=== PATIENT | female | born 1945 | race Caucasian/White ===

== ENCOUNTER 2024-01-03 20:17 | Emergency (ER) | payer MEDICARE, OTHER ==
[~2024-01-03] VITALS: Ht 160 cm; Wt 81.6 kg
[2024-01-03 21:58] LABS: BASOPHILS % (AUTO) 0.3 % (0.0-2.0); EOSINOPHILS # (AUTO) 0.1 K/uL (0.0-0.7); EOSINOPHILS % (AUTO) 2.3 % (0.0-6.0); HEMATOCRIT 37 % (33-45); HEMOGLOBIN 12.1 g/dL (11.5-14.8); LYMPHOCYTES # (AUTO) 2.3 K/uL (0.8-4.8); LYMPHOCYTES % (AUTO) 34.9 % (20.0-44.0); MEAN CORPUSCULAR HEMOGLOBIN 32 PG (26.0-33.0); MEAN CORPUSCULAR HGB CONC 33 g/dl (31.0-36.0); MEAN CORPUSCULAR VOLUME 95 fL (82-100); MONOCYTES # (AUTO) 0.6 K/uL (0.1-1.30); MONOCYTES % (AUTO) 8.9 % (2.0-12.0); NEUTROPHILS # (AUTO) 3.5 K/uL (1.8-8.9); NEUTROPHILS % (AUTO) 53.6 % (43.0-81.0); PLATELET COUNT (AUTO) 202 K/uL (150-450); RED BLOOD CELL COUNT(AUTO) 3.85 MIL/uL (4.0-5.2); RED CELL DISTRIBUTION WIDTH 16.4 % (11.5-15.0); WHITE BLOOD COUNT (AUTO) 6.5 K/uL (4.3-11.0)
[2024-01-03 22:08] LABS: APPEARANCE,URINE CLEAR (CLEAR); BILIRUBIN,URINE NEGATIVE (NEGATIVE); BLOOD, URINE NEGATIVE Ery/uL (NEGATIVE); COLOR,URINE YELLOW (YELLOW); KETONES,URINE NEGATIVE (NEGATIVE); LEUKOCYTE ESTERASE ,URINE NEGATIVE (NEGATIVE); NITRITE, URINE NEGATIVE (NEGATIVE); PROTEIN,URINE NEGATIVE (NEGATIVE); UGLUCOSE NEGATIVE (NEGATIVE); UROBILINOGEN,URINE 0.2 EU/dL (0.2)
[2024-01-03 22:12] LABS: ALANINE AMINOTRANSFERASE 18 U/L (12-78); ALBUMIN 2.8 g/dL (3.4-5.0); ALCOHOL, BLOOD < 3 mg/dL (0-10); ALKALINE PHOSPHATASE 77 U/L (46-116); ASPARTATE AMINOTRANSFERASE 18 U/L (15-37); BILIRUBIN,DIRECT 0.1 mg/dL (0.0-0.2); BILIRUBIN,TOTAL 0.2 mg/dL (0.2-1.0); CALCIUM, SERUM 8.6 mg/dL (8.5-10.1); CARBON DIOXIDE 34 mmol/L (21-32); CHLORIDE 101 mmol/L (98-107); CREATININE 0.9 mg/dL (0.6-1.3); GLUCOSE 118 mg/dL (74-106); POTASSIUM 3.6 mmol/L (3.5-5.1); SODIUM SERUM 142 mmol/L (136-145); TOTAL PROTEIN, SERUM 6.9 g/dL (6.4-8.2); UREA NITROGEN, BLOOD 21 mg/dL (7-18)
[2024-01-03 22:14] LABS: AMPHETAMINE, URINE NEGATIVE (NEGATIVE); BARBITURATE, URINE NEGATIVE (NEGATIVE); BENZODIAZEPINE, URINE NEGATIVE (NEGATIVE); CANNABINOID, URINE NEGATIVE (NEGATIVE); COCCAINE, URINE NEGATIVE (NEGATIVE); OPIATE, URINE NEGATIVE (NEGATIVE); PHENCYCLIDINE SCREEN,URINE NEGATIVE (NEGATIVE)
[2024-01-03 22:18] LABS: ACETAMINOPHEN <10 ug/ml (10-30); SALICYLATE 1.5 mg/dL (2.8-20.0)
[2024-01-04] MEDS ORDERED: LORAZEPAM 1 MG TABLET ONE (03:37)
[2024-01-04] MEDS: LORAZEPAM 1 MG TABLET PO ONE (03:41)
[2024-01-04] MEDS ORDERED: TRAZ-257 PO (09:44)
[2024-01-04] MEDS ORDERED: NYST15PO3 TP (09:44)
[2024-01-04] MEDS ORDERED: ESCI10TA PO (09:44)
[2024-01-04] MEDS ORDERED: BENZ2TAB7 PO (09:44)
[2024-01-04] MEDS ORDERED: PROP10DR15 EACHEYE (09:44)
[2024-01-04] MEDS ORDERED: [UNRECOGNIZED DRUG - CODE] TP (09:44)
[2024-01-04] MEDS ORDERED: OLAN5TAB6 PO (09:44)
[2024-01-04] MEDS ORDERED: POTA10TA11 PO (09:44)
[2024-01-04] MEDS ORDERED: HALO5TAB PO (09:44)
[2024-01-04] MEDS ORDERED: POLY17PO4 PO (09:44)
[2024-01-04] MEDS ORDERED: DIVA-78 PO (09:44)
[2024-01-04] MEDS ORDERED: LIDO76.5 TP (09:44)
[2024-01-04] MEDS ORDERED: INSU100I26 SQ (09:44)
[2024-01-04] MEDS ORDERED: ERYT3.5O9 EACHEYE (09:44)
[2024-01-04] MEDS ORDERED: FURO40TA5 PO (09:44)
[2024-01-04] MEDS ORDERED: METF-866 PO (09:44)
[2024-01-04] MEDS ORDERED: TRAM50TA2 PO (09:44)
[2024-01-04] MEDS ORDERED: LIDO700A30 TP (09:44)
[2024-01-04] MEDS ORDERED: ACET650T10 PO ×2 (09:44)
[2024-01-04] MEDS: ESCITALOPRAM OXALATE (10 MG) 10 MG TABLET PO ONE (15:00)
[2024-01-04] MEDS ORDERED: ESCITALOPRAM OXALATE (10 MG) 10 MG TABLET ONE (15:35)
[2024-01-04] MEDS ORDERED: OLANZAPINE 5 MG TABLET ONE (17:06)
[2024-01-04] MEDS: OLANZAPINE 5 MG TABLET PO SCH (17:07)
[2024-01-04 17:35] VITALS: BP 130/71; TEMP 98; O2SAT 95
[2024-01-04] MEDS ORDERED: DIVALPROEX SODIUM 500 MG TABLET.DR PO SCH (22:00)
[2024-01-04] MEDS ORDERED: TRAZODONE 50 MG TABLET PO SCH (22:00)
== END 2024-01-04 17:36 ==
LOC: ER 20:46
DX: Z13.89 Encounter for screening for other disorder (principal); F31.9 Bipolar disorder, unspecified; F20.9 Schizophrenia, unspecified; Z88.0 Allergy status to penicillin; Z88.2 Allergy status to sulfonamides
CPT/HCPCS: 36415; 80048-TC; 80076-TC; 85025-TC; G0480